=== PATIENT | male | born 1990 | race Two or more races ===

== ENCOUNTER 2020-01-29 11:23 | Emergency (ER) | payer OTHER ==
[~2020-01-29] VITALS: Ht 177.8 cm; Wt 75.0 kg
[2020-01-29] MEDS ORDERED: IBUPROFEN 600MG TABLET PO ONE (13:45)
[2020-01-29] MEDS ORDERED: LIDOCAINE HCL/PF 1% 10 MG/ML 5ML VIAL IJ ONE (13:45)
[2020-01-29] MEDS ORDERED: BACITRACIN ZINC OINT UDPKT TOP ONE (13:45)
[2020-01-29 14:25] VITALS: BP 128/85
== END 2020-01-29 14:26 | disposition home or self-care (01) ==
LOC: ER 11:23
DX: S61.211A Laceration without foreign body of left index finger without damage to nail, initial encounter (principal); W26.0XXA Contact with knife, initial encounter; Y93.89 Activity, other specified; Y92.89 Other specified places as the place of occurrence of the external cause; Y99.8 Other external cause status
CPT/HCPCS: 12001; 99283; J3490